=== PATIENT | male | born 1950 | race Caucasian/White ===

== ENCOUNTER 2019-11-20 19:31 | Inpatient (IN) | payer MEDICARE, OTHER ==
[~2019-11-20] VITALS: Ht 177.8 cm; Wt 68.5 kg
[2019-11-20] MEDS ORDERED: SODIUM CHLORIDE 0.9% 1000ML 1,000 ML IV STA (20:38)
--- NOTE | 2019-11-20 20:38 | Emergency Department Note ---
History of Present Illnes History of Present Illness Chief Complaint: General Medicine Complaints History of Present Illness This is a 69 year old male abd pain x 2 weeks duration. Decreased BM per brother. Patient with developmental delay and unable to provide meaningful history. . History limited by: developmental delay Onset (how long ago): week(s) Radiation: Reports abdomen Severity: moderate Onset quality: gradual Duration (how long): week(s) Timing of current episode: constant Context: Denies recent illness, Denies recent surgery, Denies recent immobilization, Denies recent travel, Denies trauma/injury, Denies new medications, Denies hx of DVT/PE, Denies non-compliance w/ medications, Denies other Associated symptoms: Reports loss of appetite, Reports weakness Treatments prior to arrival: none Past Medical/Family History Physician Review I have reviewed the patient's past medical and family history. Any updates have been documented here. Past Medical History Recent Fever: No Clinical Suspicion of Infectio: No New/Unexplained Change in Ment: No Past Medical History: Hypertension, Other Mental Illness Past Surgical History: None Social History Smoking Cessation: Never Smoker Alcohol Use: None Any Illegal Drug Use: No Review of Systems Review of Systems Constitutional: Reports no symptoms EENTM: Reports no symptoms Cardiovascular: Reports no symptoms Respiratory: Reports no symptoms Gastrointestinal: Reports abdominal pain Genitourinary: Reports no symptoms Musculoskeletal: Reports no symptoms Integumentary: Reports no symptoms Neurological: Reports no symptoms Psychological: Reports no symptoms Endocrine: Reports no symptoms Hematological/Lymphatic: Reports no symptoms Physical Exam Related Data Allergies: Coded Allergies: No Known Allergies (Unverified , 11/21/19) Triage Vital Signs Vital Signs Date Time Temp Pulse Resp B/P (MAP) Pulse Ox O2 Delivery O2 Flow Rate FiO2 11/20/19 20:38 99.7 91 20 144/85 96 Room Air Vital signs reviewed: Yes Physical Exam CONSTITUTIONAL Constitutional: Present well-developed, Present well-nourished HENT HENT: Present normocephalic, Present atraumatic, Present oropharynx clear/moist, Present nose normal HENT L/R: Present left ext ear normal, Present right ext ear normal EYES Eyes: Reports PERRL, Reports conjunctivae normal NECK Neck: Present ROM normal PULMONARY Pulmonary: Present effort normal, Present breath sounds normal CARDIOVASCULAR Cardiovascular: Present heart sounds normal, Present tachycardia GASTROINTESTINAL Abdominal: Present soft, Present nontender, Present bowel sounds normal, Present distension GENITOURINARY Genitourinary: Present exam deferred SKIN Skin: Present warm, Present dry MUSCULOSKELETAL Musculoskeletal: Present ROM normal NEUROLOGICAL Neurological: Present alert, Present oriented x 3, Present no gross motor or sensory deficits PSYCHOLOGICAL Psychological: Present mood/affect normal, Present judgement normal Results Laboratory Lab results reviewed: Yes Laboratory comments wbc 21k, hgb 12, cr elevated, bili elevated Imaging Imaging results reviewed: Yes Impressions [facility] [address] [place] [address] Patient Name: GRAYSON WILLIAMSON MR #: [id number] : 1950 Age/Sex: 69/M Req #: [id number] Adm Physician: Ordered by: ALEK MEHTA DO Report #: [id number] Location: ER Room/Bed: Procedure: CT/CT ABDOMEN/PELVIS WO Exam Date: 11/21/19 Exam Time: 0130 REPORT STATUS: Signed EXAM: CT Abdomen and Pelvis WITHOUT contrast INDICATION: ^abd pain ^[id number] ^0130 COMPARISON: None. TECHNIQUE: Abdomen and pelvis were scanned utilizing a multidetector helical scanner from the lung base to the pubic symphysis without administration of IV contrast. Absence of intravenous contrast decreases sensitivity for detection of focal lesions and vascular pathology. Coronal and sagittal reformations were obtained. Routine protocol was performed. IV CONTRAST: None ORAL CONTRAST: None COMPLICATIONS: None RADIATION DOSE: Total DLP: 642 mGy*cm Estimated effective dose: (DLP x 0.015 x size factor) mSv CTDIvol has been reviewed. It is below the limits set by the Radiation Protocol Committee (RPC). Dose modulation, iterative reconstruction, and/or weight based adjustment of the mA/kV was utilized to reduce the radiation dose to as low as reasonably achievable. FINDINGS: LINES and TUBES: None. LOWER THORAX: Unremarkable HEPATOBILIARY: No focal hepatic lesions. No biliary ductal dilation. GALLBLADDER: No radio-opaque stones or sludge. No wall thickening. SPLEEN: No splenomegaly. PANCREAS: No focal masses or ductal dilatation. ADRENALS: No adrenal nodules. KIDNEYS/URETERS: No hydronephrosis. No cystic or solid mass lesions. Multiple renal calcifications likely represent vascular calcifications as opposed to renal calculi. GI TRACT: The colon is distended with gas and stool. Large volume of formed stool throughout the colon, notably in the rectum. Mild wall thickening of rectum and distal sigmoid colon with mild surrounding mesenteric inflammatory change. No bowel obstruction. No significant colonic diverticuli. PELVIC ORGANS/BLADDER: Mild nonspecific bladder wall thickening. Mild prostatomegaly. LYMPH NODES: No lymphadenopathy. VESSELS: Advanced arterial atherosclerotic disease. Ectatic abdominal aorta. PERITONEUM / RETROPERITONEUM: Pelvic mesenteric inflammation. No free air or fluid. BONES: No acute osseous abnormality. SOFT TISSUES: Unremarkable. IMPRESSION: Large volume of formed stool throughout the colon consistent with constipation. Mild wall thickening of the rectum and distal sigmoid colon with surrounding mesenteric inflammation is suggestive of stercoral proctitis/colitis. No bowel obstruction. Signed by: Alberto Maddox MD on 11/21/2019 1:59 AM Dictated By: ALBERTO MADDOX MD 8 Transcribed By: KIRSTEN on 11/21/19158 COPY TO: ALEK [place]A DO[place] [address] Patient Name: GRAYSON WILLIAMSON MR #: [id number] : 1950 Age/Sex: 69/M Req #: [id number] Adm Physician: SAMUEL MEHTA MD Ordered by: SAMUEL MEHTA MD Report #: [id number] Location: MED/SURG2 Room/Bed: [facility] Procedure: [id number] CT/CT CHEST WO Exam Date: 11/21/19 Exam Time: 1305 REPORT STATUS: Signed EXAM: CT Chest WITHOUT contrast 11/21/2019 1:05 PM INDICATION: ^SOB/SMOKER/HIGH WBC ^[id number] ^1305 COMPARISON: CT abdomen and pelvis 11/21/2019 TECHNIQUE: Chest was scanned utilizing a multidetector helical scanner from the lung apex through the level of the adrenal glands without administration of IV contrast. Absence of intravenous contrast decreases sensitivity for detection of lymphadenopathy and vascular pathology. Coronal and sagittal reformations were obtained. Routine protocol was performed. IV CONTRAST: None COMPLICATIONS: None RADIATION DOSE: Total DLP: 548.9 mGy*cm Estimated effective dose: (DLP x 0.015 x size factor) mSv CTDIvol has been reviewed. It is below the limits set by the Radiation Protocol Committee (RPC). FINDINGS: LINES/ TUBES: None. LUNGS AND AIRWAYS: Mild to moderate bilateral upper lobe predominant centrilobular emphysema. Mild subpleural mild atelectasis in both posterior lobes, not seen on earlier CT abdomen and pelvis, likely due to poor inspiration. 2.1 cm x 1.8 dystrophic calcification with surrounding soft tissue density in the anterior left upper lobe in continuation with the left anterior 4 rib fracture deformity, likely related to prior trauma. The soft tissue component measures 6 mm in thickness. Otherwise, no consolidation, tree-in-bud pulmonary nodule, or suspicious pulmonary nodules/masses. Airways are normal. PLEURA: The pleural spaces are clear. HEART AND MEDIASTINUM: The thyroid gland is normal. Few nonspecific subcentimeter mediastinal lymph nodes. The heart is normal in size. Trace pericardial effusion. Extensive coronary artery calcifications with extensive place. Ectasia of the aortic root at the sinus of Valsalva (3.9 cm) and mid ascending thoracic aorta (3.9 cm). Moderate calcification throughout the thoracic aorta. The thoracic aorta and pulmonary arteries are unremarkable. UPPER ABDOMEN: Unremarkable. BONES: Multilevel degenerative changes of the thoracic spine. Mild posttraumatic deformity of the left anterior fourth rib. SOFT TISSUES: Gynecomastia. IMPRESSION: Bilateral emphysema with dependent atelectasis in the lung bases. No CT findings to suggest active infection. Left upper lobe dystrophic calcification with a surrounding soft tissue component likely related to prior trauma. Given the 6 mm thickness of the soft tissue component, recommend CT chest without contrast in 3 months to demonstrate stability. Signed by: Dr. Ofelia Blount M.D. on 11/21/2019 2:10 PM Dictated By: OFELIA BLOUNT MD 141 Transcribed By: KIRSTEN on 11/21/19 1410 COPY TO: SAMUEL MEHTA MD~ Procedures 12 Lead ECG Interpretation ECG Interpretation : ECG: ECG 1 Commercial Collector: Interpreted by ED physician Date: Nov 20, 2019 Prior ECG tracings: reviewed Rate: normal BPM: 93 QRS axis: normal ST segments normal: Yes T waves normal: Yes Other findings: LVH Clinical Impression: normal ECG Assessment & Plan Medical Decision Making MDM 69 yom with abdominal pain. CBC, CMP, UA and CTS ordered to r/o appendicitis, diverticulitis, UTI, kidney stone, perforated viscus, obstruction, ischemia, COVID-19 infection and biliary pathology Assessment & Plan Final Impression: (1) UTI (urinary tract infection) (2) Weakness (3) Renal insufficiency Depart Disposition: ADMITTED Home Meds Reported Medications Aspirin (ASPIRIN CHEW) 81 Mg Chew, 81 MG PO DAILY, #30 TAB 11/21/19 Atorvastatin Calcium (ATORVASTATIN CALCIUM) 80 Mg Tablet, 40 MG PO HS 11/21/19 Lisinopril (LISINOPRIL) 40 Mg Tablet, 40 MG PO DAILY 11/21/19 Clopidogrel Bisulfate (CLOPIDOGREL) 75 Mg Tablet, 75 MG PO DAILY 11/21/19 Amlodipine Besylate (AMLODIPINE BESYLATE) 5 Mg Tablet, 5 MG PO DAILY 11/21/19 ALEK MEHTA DO Nov 20, 2019 20:38
[2019-11-20 21:21] LABS: BASOPHILS # (AUTO) 0.1 (0.0-0.1); BASOPHILS % 0.3 % (0.0-1.0); HEMATOCRIT 39.9 % (38.2-49.6); HEMOGLOBIN 12.5 g/dL (14.0-18.0); LYMPHOCYTES # (AUTO) 1.6 (1.0-3.2); LYMPHOCYTES % 7.2 % (18.0-39.1); MEAN CORPUSCULAR HEMOGLOBIN 28.9 pg (28-32); MEAN CORPUSCULAR HGB CONC 31.3 g/dL (31-35); MEAN CORPUSCULAR VOLUME 92.1 fL (81-99); MONOCYTES # (AUTO) 1.1 (0.2-0.8); MONOCYTES % 5.1 % (4.4-11.3); NEUTROPHILS # (AUTO) 18.6 (2.1-6.9); NEUTROPHILS % 85.4 % (38.7-80.0); PLATELET COUNT 239 x10e3/uL (140-360); RED BLOOD COUNT 4.33 x10e6/uL (4.3-5.7); RED CELL DISTRIBUTION WIDTH 16.9 % (11.7-14.4)
[2019-11-21 00:57] LABS: ALBUMIN 3.6 g/dL (3.5-5.0); ALBUMIN/GLOBULIN RATIO 1.1 (0.8-2.0); ANION GAP 15.5 mmol/L (8-16); CALCIUM 9.2 mg/dL (8.4-10.2); CREATININE, SERUM 2.92 mg/dL (0.72-1.25); POTASSIUM 4.5 mmol/L (3.5-5.1)
[2019-11-21] MEDS ORDERED: SODIUM CHLORIDE 0.9% 1000ML 1,000 ML ONE (01:40)
--- NOTE | 2019-11-21 02:03 | Diagnostic Imaging Report ---
EXAM: CT Abdomen and Pelvis WITHOUT contrast INDICATION: ^abd pain ^[id number] ^0130 COMPARISON: None. TECHNIQUE: Abdomen and pelvis were scanned utilizing a multidetector helical scanner from the lung base to the pubic symphysis without administration of IV contrast. Absence of intravenous contrast decreases sensitivity for detection of focal lesions and vascular pathology. Coronal and sagittal reformations were obtained. Routine protocol was performed. IV CONTRAST: None ORAL CONTRAST: None COMPLICATIONS: None RADIATION DOSE: Total DLP: 642 mGy*cm Estimated effective dose: (DLP x 0.015 x size factor) mSv CTDIvol has been reviewed. It is below the limits set by the Radiation Protocol Committee (RPC). Dose modulation, iterative reconstruction, and/or weight based adjustment of the mA/kV was utilized to reduce the radiation dose to as low as reasonably achievable. FINDINGS: LINES and TUBES: None. LOWER THORAX: Unremarkable HEPATOBILIARY: No focal hepatic lesions. No biliary ductal dilation. GALLBLADDER: No radio-opaque stones or sludge. No wall thickening. SPLEEN: No splenomegaly. PANCREAS: No focal masses or ductal dilatation. ADRENALS: No adrenal nodules. KIDNEYS/URETERS: No hydronephrosis. No cystic or solid mass lesions. Multiple renal calcifications likely represent vascular calcifications as opposed to renal calculi. GI TRACT: The colon is distended with gas and stool. Large volume of formed stool throughout the colon, notably in the rectum. Mild wall thickening of rectum and distal sigmoid colon with mild surrounding mesenteric inflammatory change. No bowel obstruction. No significant colonic diverticuli. PELVIC ORGANS/BLADDER: Mild nonspecific bladder wall thickening. Mild prostatomegaly. LYMPH NODES: No lymphadenopathy. VESSELS: Advanced arterial atherosclerotic disease. Ectatic abdominal aorta. PERITONEUM / RETROPERITONEUM: Pelvic mesenteric inflammation. No free air or fluid. BONES: No acute osseous abnormality. SOFT TISSUES: Unremarkable. IMPRESSION: Large volume of formed stool throughout the colon consistent with constipation. Mild wall thickening of the rectum and distal sigmoid colon with surrounding mesenteric inflammation is suggestive of stercoral proctitis/colitis. No bowel obstruction. Signed by: Britton Oconnell MD on 11/21/2019 1:59 AM
[2019-11-21] MEDS ORDERED: ONDANSETRON HCL INJ 2MG/ML 2ML 2 MG/ML VIAL IV PRN (03:15)
[2019-11-21] MEDS ORDERED: CEFTRIAXONE SOD 1 GM/NS 50 ML 50 ML IV SCH (03:15)
[2019-11-21] MEDS ORDERED: MORPHINE SULFATE INJ 4 MG/ML INJ 1ML IV PRN (04:45)
[2019-11-21 04:56] LABS: BILIRUBIN,URINE NEGATIVE (NEGATIVE); CLARITY,URINE CLOUDY (CLEAR); COLOR,URINE YELLOW (YELLOW); KETONES,URINE NEGATIVE (NEGATIVE); LEUKOCYTE ESTERASE ,URINE NEGATIVE (NEGATIVE); NITRITE,URINE NEGATIVE (NEGATIVE); PROTEIN,URINE DIPSTICK 2+ (NEGATIVE); URINE UROBILINOGEN 0.2 mg/dL (0.2 - 1)
[2019-11-21 05:12] LABS: RBC,URINE 21-50 /HPF (0-5); WBC,URINE (MAN) >50 /HPF (0-5)
[2019-11-21 05:13] LABS: BACTERIA,URINE MANY /HPF; EPITHELIAL CELLS,URINE FEW /LPF; RENAL EPITHELIAL CELLS,URINE FEW; TRANSITIONAL EPI CELLS,URINE FEW
[2019-11-21] MEDS: SODIUM CHLORIDE 0.9% 1000ML 1,000 ML IV SCH ×3 (06:30→20:17)
--- NOTE | 2019-11-21 06:30 | NUR ---
patient received to room 209 via stretcher from the emergency room. ivf initiated per orders. report to be passed on to day shift nurse this am.
[2019-11-21 06:53] LABS: CREATINE KINASE MB 0.9 ng/mL (0-5.0)
--- NOTE | 2019-11-21 07:00 | NUR ---
BEDSIDE SHIFT REPORT RECEIVED FROM THE PURCHASING ENGINEER RN. EDUCATED PT ABOUT FALL PRECAUTIONS. PT VERBALIZED UNDERSTANDING. CALL LIGHT WITH IN EASY REACH. INSTRUCTED PT TO USE CALL LIGHT FOR ALL THE NEEDS. BED IS LOW AND LOCKED. SIDE RAILS X2. BED ALARM IS ON. PT DENIES NEEDS AT THIS TIME.
[2019-11-21 07:10] LABS: CREATINE KINASE MB 1.4 ng/mL (0-5.0)
--- NOTE | 2019-11-21 07:30 | NUR ---
PAGED DR. Gay MARSHALL REGARDING NEW CONSULT.
--- NOTE | 2019-11-21 08:15 | NUR ---
HOME MEDS RECONFIRMED WITH PT AND BROTHER FOZIA OVER THE PHONE.
[2019-11-21] MEDS ORDERED: AMLODIPINE BESYL5 MG PO (08:17)
[2019-11-21] MEDS ORDERED: LISINOPRIL40 MG PO (08:17)
[2019-11-21] MEDS ORDERED: CLOPIDOGREL75 MG PO (08:17)
[2019-11-21] MEDS ORDERED: ATORVASTATIN CA80 MG PO (08:17)
[2019-11-21] MEDS ORDERED: ASPIRIN CHEW81 MG PO (08:17)
[2019-11-21 08:46] VITALS: BP 128/59
[2019-11-21 09:14] VITALS: BP 128/59
[2019-11-21 11:14] VITALS: BP 128/59
[2019-11-21] MEDS ORDERED: ACETAMINOPHEN 325 MG TAB PO PRN (11:15)
[2019-11-21] MEDS ORDERED: ALBUTEROL/IPRATROPIUM 3 ML NEB NEB PRN (11:15)
[2019-11-21] MEDS ORDERED: MAGNESIUM HYDROXIDE 30 ML UDC PO SCH (11:30)
[2019-11-21] MEDS ORDERED: PEG (High)/E-LYTE SOLN 4,000 ML BTL PO SCH (11:30)
[2019-11-21] MEDS: SENNA-S TABLET PO SCH ×2 (11:40→17:00)
[2019-11-21] MEDS: PIPERACILLIN/TAZO 2.25 GM 50 ML IV SCH ×2 (11:41→18:08)
--- NOTE | 2019-11-21 11:54 | History and Physical ---
CHIEF COMPLAINT: Abdominal pain, increasing shortness of breath, weakness. HISTORY OF PRESENT ILLNESS: This is a 69-year-old male smoker, visiting from out of town visiting his brother been here for 3 weeks or so now. The patient came in because he was having severe constipation, has not had any bowel movement, but also complained of increasing shortness of breath and his white cell count is greater than 21,000. The patient placed on antibiotics. According to the patient, he has been going on for past 2 to 3 weeks since he has been here. He is a smoker. No previous history of abdominal surgery. The patient stating that he had both hip surgery and he is unable to walk because of the hip, but he is able to move his extremity. He is basically wheelchair and bed-bound, able to transfer. 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 Possible COPD. Dyslipidemia, coronary artery disease, peripheral vascular disease. Hypertension. PAST SURGICAL HISTORY: Bilateral hip surgery. SOCIAL HISTORY: The patient is a smoker, half to one pack per day for many years. ALLERGIES: NO KNOWN ALLERGIES. HOME MEDICATIONS: Norvasc, aspirin, Lipitor, Plavix, and lisinopril. PHYSICAL EXAMINATION: VITAL SIGNS: Temperature is 99.7, blood pressure 128/59, pulse rate 91, respirations 20. GENERAL: The patient is awake, alert, not in distress. HEENT: Normocephalic and atraumatic. Anicteric. NECK: Supple grossly. PULMONARY: Diminished breath sounds bilaterally with some coarse. CARDIOVASCULAR: S1, S2. Regular rate and rhythm. ABDOMEN: Soft, non-distention. Generalized discomfort. EXTREMITIES: No cyanosis or edema. NEUROLOGIC: No focal deficit. LABORATORY: Urinalysis, cloudy urine, 2+ blood, wbc's greater than 50, many bacteria. COVID-9 PCR pending. Sodium is 132, potassium 4.5, chloride 100, bicarb 21, BUN 29, creatinine 2.9, glucose is 206. Lactic acid level is 1.1. WBC 21.8, hemoglobin 12.5, hematocrit 39.9, platelets 239. IMAGING DATA: CT abdomen and pelvis without contrast showed that the patient had large volume of formed stool throughout the colon consistent with constipation. There is mild wall thickening of the rectum in the distal sigmoid colon with surrounding mesenteric inflammation suggestive of proctitis, colitis. No bowel obstruction. IMPRESSION: 1. Systemic inflammatory response syndrome. 2. Leukocytosis 21.8 thousand associated with low-grade fever. 3. Obstipation, possible colitis, proctitis. 4. Baseline bed-bound, wheelchair-bound and generalized weakness. PLAN: 1. Antibiotic, Zosyn. A CT of the chest. Since the patient is a smoker, he has progressive weight loss with increasing shortness of breath and also low-grade fever. 2. Continue with home medication, blood pressure control. 3. IV fluid. 4. Stool management. 5. GI consultation. Pending on CT chest. The patient may need pulmonology consultation. In the meantime, I will go ahead and admit the patient inpatient. Started treatment. Monitor the WBC infection echols. Check blood culture and urine culture and also hold off on the Plavix and aspirin in case that the patient will need any further evaluation or procedures. In the meantime to prevent DVT, we will give the patient Lovenox because of renal insufficiency 30 mg daily. The patient is otherwise stable at this time. MD BIJU Barnes/REMYL /[id number]
[2019-11-21 12:23] VITALS: BP 141/62
[2019-11-21] MEDS: ALBUTEROL/IPRATROPIUM 3 ML NEB NEB SCH ×2 (12:35→19:25)
--- NOTE | 2019-11-21 13:05 | NUR ---
PT OFF UNIT TO RADIOLOGY IN SAFE CONDITION
--- NOTE | 2019-11-21 13:30 | NUR ---
PT IS BACK TO THE UNIT FROM RADIOLOGY. PT DENIES NEEDS AT THIS TIME.
--- NOTE | 2019-11-21 14:13 | Diagnostic Imaging Report ---
EXAM: CT Chest WITHOUT contrast 11/21/2019 1:05 PM INDICATION: ^SOB/SMOKER/HIGH WBC ^[id number] ^1305 COMPARISON: CT abdomen and pelvis 11/21/2019 TECHNIQUE: Chest was scanned utilizing a multidetector helical scanner from the lung apex through the level of the adrenal glands without administration of IV contrast. Absence of intravenous contrast decreases sensitivity for detection of lymphadenopathy and vascular pathology. Coronal and sagittal reformations were obtained. Routine protocol was performed. IV CONTRAST: None COMPLICATIONS: None RADIATION DOSE: Total DLP: 548.9 mGy*cm Estimated effective dose: (DLP x 0.015 x size factor) mSv CTDIvol has been reviewed. It is below the limits set by the Radiation Protocol Committee (RPC). FINDINGS: LINES/ TUBES: None. LUNGS AND AIRWAYS: Mild to moderate bilateral upper lobe predominant centrilobular emphysema. Mild subpleural mild atelectasis in both posterior lobes, not seen on earlier CT abdomen and pelvis, likely due to poor inspiration. 2.1 cm x 1.8 dystrophic calcification with surrounding soft tissue density in the anterior left upper lobe in continuation with the left anterior 4 rib fracture deformity, likely related to prior trauma. The soft tissue component measures 6 mm in thickness. Otherwise, no consolidation, tree-in-bud pulmonary nodule, or suspicious pulmonary nodules/masses. Airways are normal. PLEURA: The pleural spaces are clear. HEART AND MEDIASTINUM: The thyroid gland is normal. Few nonspecific subcentimeter mediastinal lymph nodes. The heart is normal in size. Trace pericardial effusion. Extensive coronary artery calcifications with extensive place. Ectasia of the aortic root at the sinus of Valsalva (3.9 cm) and mid ascending thoracic aorta (3.9 cm). Moderate calcification throughout the thoracic aorta. The thoracic aorta and pulmonary arteries are unremarkable. UPPER ABDOMEN: Unremarkable. BONES: Multilevel degenerative changes of the thoracic spine. Mild posttraumatic deformity of the left anterior fourth rib. SOFT TISSUES: Gynecomastia. IMPRESSION: Bilateral emphysema with dependent atelectasis in the lung bases. No CT findings to suggest active infection. Left upper lobe dystrophic calcification with a surrounding soft tissue component likely related to prior trauma. Given the 6 mm thickness of the soft tissue component, recommend CT chest without contrast in 3 months to demonstrate stability. Signed by: Dr. Harriet Keating M.D. on 11/21/2019 2:10 PM
[2019-11-21 16:55] VITALS: BP 144/68
[2019-11-21] MEDS: ENOXAPARIN 30 MG/0.3 ML SYR SC SCH (17:00)
[2019-11-21] MEDS ORDERED: PEG (High)/E-LYTE SOLN 4,000 ML BTL PO ONE (18:25)
--- NOTE | 2019-11-21 19:20 | NUR ---
BEDSIDE SHIFT REPORT GIVEN TO THE QUARTER BACKER RN. PT DENIED FURTHER NEEDS.
--- NOTE | 2019-11-21 19:28 | NUR ---
Patient received sitting up in bed. AAO x 3. Patient had no complaints of pain. Respirations even and non-labored. Safety measures in place. Patient instructed to call for assistance when needed. Call light within reach.
[2019-11-21 20:00] VITALS: BP 127/86
[2019-11-21] MEDS: ATORVASTATIN 40 MG TAB PO SCH (20:17)
[2019-11-21 21:09] LABS: CREATINE KINASE MB 1.9 ng/mL (0-5.0)
[2019-11-21] MEDS ORDERED: BISACODYL 10 MG SUPP PR ONE (22:15)
[2019-11-21] MEDS ORDERED: BISACODYL 5 MG TAB EC PO ONE ×2 (22:15→23:15)
[2019-11-21] MEDS ORDERED: CITRATE OF MAGNESIA 300ML BOTTLE PO ONE (22:15)
--- NOTE | 2019-11-21 22:15 | NUR ---
Dr. Fran Andino here to see patient. New orders received.
--- NOTE | 2019-11-21 23:15 | NUR ---
Urine specimen sent to lab for Gram stain.
[2019-11-22] VITALS (10 sets, daily range): BP systolic 120–145; BP diastolic 57–91
[2019-11-22] MEDS ORDERED: BISACODYL 5 MG TAB EC PO ONE ×4 (00:15→22:00)
[2019-11-22] MEDS: PIPERACILLIN/TAZO 2.25 GM 50 ML IV SCH ×4 (01:27→17:02)
[2019-11-22] MEDS: ALBUTEROL/IPRATROPIUM 3 ML NEB NEB SCH ×4 (01:55→20:20)
[2019-11-22] MEDS: SODIUM CHLORIDE 0.9% 1000ML 1,000 ML IV SCH ×3 (03:15→23:15)
[2019-11-22 06:16] LABS: BASOPHILS % 0.3 % (0.0-1.0); EOSINOPHILS % 0.1 % (0.0-6.0); HEMATOCRIT 31.6 % (38.2-49.6); HEMOGLOBIN 10.1 g/dL (14.0-18.0); LYMPHOCYTES # (AUTO) 0.4 (1.0-3.2); LYMPHOCYTES % 3.5 % (18.0-39.1); MEAN CORPUSCULAR HEMOGLOBIN 29.4 pg (28-32); MEAN CORPUSCULAR VOLUME 92.1 fL (81-99); MONOCYTES # (AUTO) 0.5 (0.2-0.8); MONOCYTES % 4.4 % (4.4-11.3); NEUTROPHILS # (AUTO) 10.8 (2.1-6.9); NEUTROPHILS % 90.6 % (38.7-80.0); PLATELET COUNT 170 x10e3/uL (140-360); RED BLOOD COUNT 3.43 x10e6/uL (4.3-5.7); RED CELL DISTRIBUTION WIDTH 17.2 % (11.7-14.4)
[2019-11-22 06:39] LABS: ALBUMIN 3.1 g/dL (3.5-5.0); ALBUMIN/GLOBULIN RATIO 0.9 (0.8-2.0); ANION GAP 15.2 mmol/L (8-16); CALCIUM 8.8 mg/dL (8.4-10.2); CREATININE, SERUM 2.79 mg/dL (0.72-1.25); POTASSIUM 4.2 mmol/L (3.5-5.1)
--- NOTE | 2019-11-22 07:00 | NUR ---
BEDSIDE SHIFT REPORT RECEIVED FROM THE SATURATION EQUIPMENT OPERATOR RN. EDUCATED PT ABOUT FALL PRECAUTIONS. PT VERBALIZED UNDERSTANDING. CALL LIGHT WITH IN EASY REACH. INSTRUCTED PT TO USE CALL LIGHT FOR ALL THE NEEDS. BED IS LOW AND LOCKED. SIDE RAILS X2. BED ALARM IS ON. PT DENIES NEEDS AT THIS TIME.
[2019-11-22] MEDS: SENNA-S TABLET PO SCH ×2 (08:57→17:02)
[2019-11-22] MEDS: AMLODIPINE BESYLATE 5 MG TAB PO SCH (08:57)
[2019-11-22 09:42] LABS: LYMPHOCYTES % (MANUAL) 7 % (19-48); MONOCYTES % (MANUAL) 4 % (3.4-9.0); NEUTROPHILS % (MANUAL) 89 % (40-74); PLATELET ESTIMATE ADEQUATE; PLATELET MORPHOLOGY COMMENT NORMAL; RBC MORPHOLOGY COMMENT NORMAL
[2019-11-22] MEDS: ENOXAPARIN 30 MG/0.3 ML SYR SC SCH (17:02)
--- NOTE | 2019-11-22 19:00 | NUR ---
BEDSIDE SHIFT REPORT GIVEN TO THE STARCH COOKER RN. PT DENIED FURTHER NEEDS.
[2019-11-22] MEDS: ATORVASTATIN 40 MG TAB PO SCH (20:37)
[2019-11-22] MEDS ORDERED: CITRATE OF MAGNESIA 300ML BOTTLE PO ONE (22:00)
[2019-11-23] VITALS (8 sets, daily range): BP systolic 109–145; BP diastolic 45–96
[2019-11-23] MEDS: PIPERACILLIN/TAZO 2.25 GM 50 ML IV SCH ×4 (00:20→17:00)
[2019-11-23 00:28] LABS: FERRITIN 619.67 ng/mL (21.81-274.66)
[2019-11-23] MEDS: ALBUTEROL/IPRATROPIUM 3 ML NEB NEB SCH ×4 (00:30→20:35)
[2019-11-23] MEDS: SODIUM CHLORIDE 0.9% 1000ML 1,000 ML IV SCH (04:51)
--- NOTE | 2019-11-23 06:13 | NUR ---
IV on Rt AC infiltrated. Old IV removed with tip intact. New IV inserted in right hand 22G. Patient tolerated well.
[2019-11-23 06:23] LABS: ANION GAP 12.5 mmol/L (8-16); CALCIUM 8.6 mg/dL (8.4-10.2); CREATININE, SERUM 2.8 mg/dL (0.72-1.25); POTASSIUM 3.5 mmol/L (3.5-5.1)
[2019-11-23] MEDS: AMLODIPINE BESYLATE 5 MG TAB PO SCH (09:10)
[2019-11-23] MEDS: SENNA-S TABLET PO SCH ×2 (09:10→17:00)
[2019-11-23] MEDS ORDERED: ONDANSETRON HCL 4 MG ORAL DISINTEGRATING TAB PO PRN (11:15)
[2019-11-23] MEDS: ENOXAPARIN 30 MG/0.3 ML SYR SC SCH (17:00)
--- NOTE | 2019-11-23 18:59 | NUR ---
Report given to oncoming nurse of patient's status. Resting in bed. No s/s of acute distress noted. Side rails upx2, bed alarm on, call light within reach.
--- NOTE | 2019-11-23 19:15 | NUR ---
Patient received lying in bed. AAO x 3. No acute distress noted. Safety measures in place. Call light within reach.
[2019-11-23] MEDS ORDERED: CITRATE OF MAGNESIA 300ML BOTTLE PO ONE ×2 (21:00→22:00)
[2019-11-23] MEDS: ATORVASTATIN 40 MG TAB PO SCH (21:34)
--- NOTE | 2019-11-23 23:03 | NUR ---
Dr. Fran bowers to see patient. New orders received.
[2019-11-23] MEDS ORDERED: BISACODYL 5 MG TAB EC PO ONE (23:15)
[2019-11-23] MEDS ORDERED: CYANOCOBALAMIN INJ 1,000 MCG/ML VIAL IM STA (23:21)
[2019-11-23] MEDS ORDERED: IRON SUCROSE 100 MG in SODIUM CHLORIDE 0.9% 100 ML 100 ML IV SCH (23:30)
[2019-11-24] VITALS (7 sets, daily range): BP systolic 125–160; BP diastolic 71–90
[2019-11-24] MEDS: PIPERACILLIN/TAZO 2.25 GM 50 ML IV SCH ×5 (00:07→23:45)
[2019-11-24] MEDS ORDERED: BISACODYL 5 MG TAB EC PO ONE (00:15)
--- NOTE | 2019-11-24 00:15 | NUR ---
IV on left arm infiltrated. Old IV removed with tip intact. New IV inserted in Right hand 20G. Patient tolerated well.
[2019-11-24] MEDS ORDERED: BISACODYL 5 MG TAB EC PO NR (02:10)
[2019-11-24] MEDS: SODIUM CHLORIDE 0.9% 1000ML 1,000 ML IV SCH ×3 (02:20→16:05)
[2019-11-24] MEDS: ALBUTEROL/IPRATROPIUM 3 ML NEB NEB SCH ×4 (02:20→20:05)
[2019-11-24 06:15] LABS: BASOPHILS % 0.5 % (0.0-1.0); EOSINOPHILS # (AUTO) 0.4 (0.0-0.4); EOSINOPHILS % 6.4 % (0.0-6.0); HEMATOCRIT 33.2 % (38.2-49.6); HEMOGLOBIN 10.3 g/dL (14.0-18.0); LYMPHOCYTES % 17.3 % (18.0-39.1); MEAN CORPUSCULAR VOLUME 93.5 fL (81-99); MONOCYTES # (AUTO) 0.5 (0.2-0.8); MONOCYTES % 8.7 % (4.4-11.3); NEUTROPHILS % 66.8 % (38.7-80.0); PLATELET COUNT 203 x10e3/uL (140-360); RED BLOOD COUNT 3.55 x10e6/uL (4.3-5.7); RED CELL DISTRIBUTION WIDTH 17.1 % (11.7-14.4)
[2019-11-24 06:47] LABS: ANION GAP 11.6 mmol/L (8-16); CREATININE, SERUM 2.47 mg/dL (0.72-1.25); POTASSIUM 3.6 mmol/L (3.5-5.1)
--- NOTE | 2019-11-24 07:20 | NUR ---
PATIENT IS ALERT AND IN STABLE CONDITION WITH NO S/S OF RESPIRATORY DISTRESS. NO C/O PAIN AT THIS TIME. DBED ALARM APPLIED. CALL LIGHT IS WITHIN REACH, PATIENT INSTRUCTED TO CALL FOR ASSISTANCE NEEDED.
[2019-11-24] MEDS ORDERED: IRON SUCROSE 100 MG in SODIUM CHLORIDE 0.9% 100 ML 100 ML IV SCH (08:00)
[2019-11-24] MEDS: AMLODIPINE BESYLATE 5 MG TAB PO SCH (08:33)
[2019-11-24] MEDS: SENNA-S TABLET PO SCH ×2 (08:33→16:01)
[2019-11-24] MEDS: CYANOCOBALAMIN INJ 1,000 MCG/ML VIAL IM SCH (08:35)
[2019-11-24] MEDS: IRON SUCROSE 100 MG in SODIUM CHLORIDE 0.9% 100 ML 100 ML IV SCH (12:39)
[2019-11-24] MEDS: ENOXAPARIN 30 MG/0.3 ML SYR SC SCH (16:05)
--- NOTE | 2019-11-24 17:32 | NUR ---
INFORMED DR. MEHTA OF PT'S RECOMMENDATION FOR HOME HEALTH- NO NEW ORDER RECEIVED. PATIENT REFUSED [facility] BUT AGREED FOR HOME HEALTH PT EVAL/TREAT.
--- NOTE | 2019-11-24 18:34 | NUR ---
SPOKE WITH DR. Fran MARSHALL REGARDING THE FAC INFORMATION ON THE PATIENT'S PREVIOUS COLONOSCOPY IN 2018. DR. MARSHALL AWARE THE FAX WILL BE LEFT FOR HIM ON THE TOP PART OF THE CHART.
--- NOTE | 2019-11-24 19:10 | NUR ---
PATIENT IS IN STABLE CONDITION WITH NO S/S OF RESPIRATORY DISTRESS. NO PAIN VOICED. IV FLUIDS INFUSING. TELEMETRY APPLIED. BED ALARM APPLIED. CALL LIGHT IS WITHIN REACH, PATIENT INSTRUCTED TO CALL FOR ASSISTANCE NEEDED. REPORT GIVEN TO ONCOMING NURSE.
--- NOTE | 2019-11-24 19:30 | NUR ---
patient received awake, alert, lying quietly in bed. no c/o pain noted. ivf continue to infuse without difficulty. pm assessment complete. call cadet placed within reach. patient instructed to call for assistance when needed.
[2019-11-24] MEDS: ATORVASTATIN 40 MG TAB PO SCH (21:00)
[2019-11-25] VITALS (8 sets, daily range): BP systolic 139–188; BP diastolic 70–89
--- NOTE | 2019-11-25 00:15 | NUR ---
Dr. Braxton here to see patient. diet advanced to gi soft diet.
[2019-11-25] MEDS: ALBUTEROL/IPRATROPIUM 3 ML NEB NEB SCH ×4 (01:25→19:45)
[2019-11-25] MEDS: SODIUM CHLORIDE 0.9% 1000ML 1,000 ML IV SCH ×2 (03:15→17:34)
[2019-11-25] MEDS: PIPERACILLIN/TAZO 2.25 GM 50 ML IV SCH ×3 (05:25→17:34)
--- NOTE | 2019-11-25 07:10 | NUR ---
PATIENT IS IN STABLE CONDITION WITH NO S/S OF RESPIRATORY DISTRESS- NO PAIN VOICED. DIAPER APPLIED. BED ALARM APPLIED. CALL LIGHT IS WITHIN REACH, PATIENT INSTRUCTED TO CALL FOR ASSISTANCE NEEDED.
[2019-11-25] MEDS: AMLODIPINE BESYLATE 5 MG TAB PO SCH (08:12)
[2019-11-25] MEDS: CYANOCOBALAMIN INJ 1,000 MCG/ML VIAL IM SCH (08:12)
[2019-11-25] MEDS: SENNA-S TABLET PO SCH ×2 (08:38→16:08)
--- NOTE | 2019-11-25 10:48 | NUR ---
Pt unavailable at this time. EVS cleaning room. I will follow up as able. BRADEN POOL Nuclear Unit Operator Spiritual Care Department O: [phone]
[2019-11-25] MEDS: IRON SUCROSE 100 MG in SODIUM CHLORIDE 0.9% 100 ML 100 ML IV SCH (12:05)
[2019-11-25] MEDS: ENOXAPARIN 30 MG/0.3 ML SYR SC SCH (17:34)
--- NOTE | 2019-11-25 19:00 | NUR ---
PATIENT FINISHED BATHING- PCT AVAILABLE FOR PATIENT IN ROOM. PATIENT IN STABLE CONDITION WITH NO S/S OF RESPIRATORY DISTRESS. NO PAIN VOICED. CALL LIGHT IS WITHIN REACH, PATIENT INSTRUCTED TO CALL FOR ASSISTANCE NEEDED. REPORT GIVEN TO ONCOMING NURSE.
[2019-11-25] MEDS: ATORVASTATIN 40 MG TAB PO SCH (20:40)
--- NOTE | 2019-11-25 20:40 | NUR ---
PATIENT RESTING IN BED IN STABLE CONDITION, NO SIGNS OF DISTRESS NOTED. IV FLUIDS ARE RUNNING AT ORDERED RATE AND PATIENT VOICES NO PAIN AT THIS TIME. LUNG SOUNDS ARE CLEAR AND IV REMOVED FROM LEFT WRIST DUE TO LEAKAGE. BED IN LOW POSITION, BOTH SIDE RAILS ARE UP, BED ALARM IS ON, CALL LIGHT IS WITHIN EASY REACH, WILL CONTINUE TO MONITOR.
[2019-11-26] VITALS: BP 124/76
[2019-11-26] MEDS: PIPERACILLIN/TAZO 2.25 GM 50 ML IV SCH ×3 (00:06→12:00)
[2019-11-26] MEDS: ALBUTEROL/IPRATROPIUM 3 ML NEB NEB SCH ×3 (01:00→12:50)
[2019-11-26] MEDS: SODIUM CHLORIDE 0.9% 1000ML 1,000 ML IV SCH (01:23)
[2019-11-26 04:00] VITALS: BP 118/49
[2019-11-26 06:08] LABS: BASOPHILS # (AUTO) 0.1 (0.0-0.1); BASOPHILS % 1.1 % (0.0-1.0); EOSINOPHILS # (AUTO) 0.4 (0.0-0.4); EOSINOPHILS % 7.9 % (0.0-6.0); HEMATOCRIT 32.4 % (38.2-49.6); HEMOGLOBIN 9.9 g/dL (14.0-18.0); LYMPHOCYTES # (AUTO) 1.3 (1.0-3.2); LYMPHOCYTES % 24.4 % (18.0-39.1); MEAN CORPUSCULAR HEMOGLOBIN 28.2 pg (28-32); MEAN CORPUSCULAR HGB CONC 30.6 g/dL (31-35); MEAN CORPUSCULAR VOLUME 92.3 fL (81-99); MONOCYTES # (AUTO) 0.4 (0.2-0.8); MONOCYTES % 8.3 % (4.4-11.3); NEUTROPHILS % 56.8 % (38.7-80.0); PLATELET COUNT 244 x10e3/uL (140-360); RED BLOOD COUNT 3.51 x10e6/uL (4.3-5.7); RED CELL DISTRIBUTION WIDTH 16.5 % (11.7-14.4)
[2019-11-26 06:25] LABS: ANION GAP 10.1 mmol/L (8-16); CALCIUM 8.5 mg/dL (8.4-10.2); CREATININE, SERUM 2.19 mg/dL (0.72-1.25); POTASSIUM 3.1 mmol/L (3.5-5.1)
--- NOTE | 2019-11-26 07:10 | NUR ---
RCD PT AT BED PT IS ALERT AND ORIENTED IV PATENT BY SALINE FLUSH BED LOW AND LOCKED CALL LIGHT IN REACH
[2019-11-26 08:35] VITALS: BP 168/75
[2019-11-26 09:00] VITALS: BP 168/75
[2019-11-26] MEDS: SENNA-S TABLET PO SCH (09:00)
[2019-11-26] MEDS: CYANOCOBALAMIN INJ 1,000 MCG/ML VIAL IM SCH (09:00)
[2019-11-26] MEDS: AMLODIPINE BESYLATE 5 MG TAB PO SCH (09:00)
[2019-11-26 09:29] LABS: EOSINOPHILS % (MANUAL) 5 % (0-7); LYMPHOCYTES % (MANUAL) 19 % (19-48); MONOCYTES % (MANUAL) 4 % (3.4-9.0); NEUTROPHILS % (MANUAL) 72 % (40-74); PLATELET ESTIMATE ADEQUATE; PLATELET MORPHOLOGY COMMENT RARE EDTA CLUMPING; RBC MORPHOLOGY COMMENT NORMAL
[2019-11-26] MEDS ORDERED: POTASSIUM CHLORIDE 10MEQ EA PO ONE (10:00)
[2019-11-26] MEDS ORDERED: SENOKOT-S TABL1 EACH PO (10:11)
[2019-11-26] MEDS ORDERED: CIPRO500 MG PO (10:12)
[2019-11-26] MEDS ORDERED: FLAGYL250 MG PO (10:12)
[2019-11-26] MEDS ORDERED: MIRALAX17 GM PO (10:13)
[2019-11-26] MEDS ORDERED: NORVASC5 MG PO (10:14)
[2019-11-26] MEDS ORDERED: VITAMIN B-121000 MCG PO (10:14)
[2019-11-26] MEDS: IRON SUCROSE 100 MG in SODIUM CHLORIDE 0.9% 100 ML 100 ML IV SCH (12:00)
[2019-11-26 12:31] VITALS: BP 177/84
--- NOTE | 2019-11-26 13:02 | NUR ---
PT WENT HOME IN SAFE CONDITION WITH HIS BROTHER
[2019-11-27 06:11] LABS: ENDOMYSIAL ANTIBODIES, IGA Negative (Negative)
--- OUTSIDE RECORDS SUMMARY | 2019-12-19 05:17 | XMS REPORT | Continuity of Care Document ---
Author Author [facility] t Organization [facility] Address [address] [place] [address] Phone Unavailable Care Team Providers Care Collision Estimator Name Role Phone NONSTAFF PCP Unavailable SAMUEL MEHTA Attphys Unavailable SAMUEL MEHTA Admphys Unavailable Problems Condition Name Condition Details Condition Category Status Onset Date Resolution Date Last Treatment Date Treating Clinician Comments Source Urinary tract infection Problem Active [facility] Renal insufficiency Problem [facility] Weakness Problem [facility] Allergies, Adverse Reactions, Alerts This patient has no known allergies or adverse reactions. Social History Social Habit Start Date Stop Date Quantity Comments Source Sex Assigned At 1950 00:00:00 1950 00:00:00 Male [facility] Medications Ordered Medication Name Filled Medication Name Start Date Stop Da te Current Medication? Ordering Clinician Indication Dosage Frequency Signature (SIG) Comments Components Source Amlodipine Besylate Amlodipine Besylate Yes 5 Daily [facility] Amlodipine Besylate (Norvasc) 5 Mg TAB Amlodipine Besylate (Norv asc) 5 Mg TAB Yes 5 Daily [facility] Aspirin (Aspirin Chew) 81 Mg CHEW Aspirin (Aspirin Chew) 81 Mg CHEW Yes 81 Daily [facility] Atorvastatin Calcium Atorvastatin Calcium Yes 40 Bedtime [facility] Ciprofloxacin Hcl (Cipro) 500 Mg TABLET Ciprofloxacin Hcl (C ipro) 500 Mg TABLET Yes 250 Every 12 Hours [facility] Clopidogrel Bisulfate (Clopidogrel) 75 Mg TABLET Clopi dogrel Bisulfate (Clopidogrel) 75 Mg TABLET Yes 75 Daily [facility] Cyanocobalamin (Vitamin B-12) 1,000 Mcg TAB Cyanocobal scales (Vitamin B-12) 1,000 Mcg TAB Yes 1000 Daily [facility] Metronidazole (Flagyl) 250 Mg TABLET Metronidazole (Flagyl) 250 Mg TABLET Yes 500 Twice A Day [facility] Polyethylene Glycol 3350 (Miralax) 17 Gm POWD.PACK Octaviano yethylene Glycol 3350 (Miralax) 17 Gm POWD.PACK Yes 17 Twice A Day [facility] Sennosides/Docusate Sodium (Senokot-S Tablet) 1 Each T ABLET Sennosides/Docusate Sodium (Senokot-S Tablet) 1 Each TABLET Yes 1 Twice A Day [facility] Lisinopril Lisinopril 2019-11-26 00:00:00 No 40 Marjorie ly [facility] Vital Signs Vital Name Observation Time Observation Value Comments Source Body Temperature 2019-11-26 12:31:00 98.5 [degF] [facility] BMI (Body Mass Index) 2019-11-22 00:27:00 21.7 kg/m2 [facility] Weight 2019-11-20 20:38:00 151 [lb_av] [facility] Procedures Procedure Date / Time Performed Performing Clinician Sergey tata CT of abdomen and pelvis without contrast 2019-11-21 00:00:00 [facility] Computed tomography of chest without contrast 2019-11-21 00:00:0 0 [facility] Plan of Care Planned Activity Planned Date Details Comments Source Instructions Abdominal Pain - Adult [facility] Encounters Start Date/Time End Date/Time Encounter Type Admission Type Attendi [facility] Care Department Encounter ID Source 2019-11-21 11:10:00 2019-11-26 13:20:00 Discharged Inpatient 1 TYSONSAMUEL [facility] [id number] [facility] Results Test Description Test Time Test Comments Results Result Comments Source Blood leukocytes automated count (number/volume) 2019-11-26 05:10:00 Test Item White Blood Count (test code = 6690-2) 5.29 4.8-10.8 [facility] erythrocytes automated count (number/volume)2019-11-26 05:10:00* Test Item Value Reference Range Interpretation Comments Red Blood Count (test code = 789-8) 3.51 4.3-5.7 [facility] hemoglobin measurement (moles/volume)2019-11-26 05:10:00* Test Item Value Reference Range Interpretation Comments Hemoglobin (test code = 56249-7) 9.9 14.0-18.0 [facility] CenterAutomated blood hematocrit (volume fraction)2019-11-26 05:10:00* Test Item Value Reference Range Interpretation Comments Hematocrit (test code = 4544-3) 32.4 38.2-49.6 [facility] CenterAutomated erythrocyte mean corpuscular kdekum2784-80-73 05:10:00* Test Item Value Reference Range Interpretation Comments Mean Corpuscular Volume (test code = 787-2) 92.3 81-99 [facility] CenterAutomated erythrocyte mean corpuscular hemoglobin (mass per erythrocyte)2019-11-26 05:10:00* Test Item Value Reference Range Interpretation Comments Mean Corpuscular Hemoglobin (test code = 785-6) 28.2 28-32 [facility] CenterAutomated erythrocyte mean corpuscular hemoglobin concentration measurement (mass/volume)2019-11-26 05:10:00* Test Item Value Reference Range Interpretation Comments Mean Corpuscular Hemoglobin Concent (test code = 786-4) 30.6 31-35 [facility] CenterRDW VojLg-Xnx4020-99-08 05:10:00* Test Item Value Reference Range Interpretation Comments Red Cell Distribution Width (test code = 05371-6) 16.5 11.7 -14.4 [facility] CenterAutomated blood platelet count (count/volume)2019-11-26 05:10:00* Test Item Value Reference Range Interpretation Comments Platelet Count (test code = 777-3) 244 140-360 [facility] neutrophil count as percentage of total qpkvfvhpmu7813-70-59 05:10:00* Test Item Value Reference Range Interpretation Comments Neutrophils (%) (Auto) (test code = 27498-1) 56.8 38.7-80.0 [facility] CenterAutomated blood lymphocyte count as percentage ot total btunlfgflk1193-89-75 05:10:00* Test Item Value Reference Range Interpretation Comments Lymphocytes (%) (Auto) (test code = 736-9) 24.4 18.0-39.1 [facility] CenterAutomated blood monocyte count as percentage of total krbidrlpvk9626-87-40 05:10:00* Test Item Value Reference Range Interpretation Comments Monocytes (%) (Auto) (test code = 5905-5) 8.3 4.4-11.3 [facility] CenterAutfirsthealth [facility]ed blood eosinophil count as percentage of total vebmlgkbej2327-30-62 05:10:00* Test Item Value Reference Range Interpretation Comments Eosinophils (%) (Auto) (test code = 713-8) 7.9 0.0-6.0 [facility] CenterAutomated blood basophil count as percentage of total isjudefkru4851-52-43 05:10:00* Test Item Value Reference Range Interpretation Comments Basophils (%) (Auto) (test code = 706-2) 1.1 0.0-1.0 [facility] CenterFluoroscopic procedure less than one hour thtpsnhq2931-68-04 05:10:00* Test Item Value Reference Range Interpretation Comments IM GRANULOCYTES % (test code = IM GRANULOCYTES %) 1.5 0.0- 1.0 [facility] CenterAutomated blood neutrophil count 2019-11-26 05:10:00* Test Item Value Reference Range Interpretation Comments Neutrophils # (Auto) (test code = 751-8) 3.0 2.1-6.9 [facility] CenterBlood lymphocytes count (number/volume) 2019-11-26 05:10:00* Test Item Value Reference Range Interpretation Comments Lymphocytes # (Auto) (test code = 11256-8) 1.3 1.0-3.2 [facility] CenterB[facility]au[facility] monocytes automated count (number/volume)2019-11-26 05:10:00* Test Item Value Reference Range Interpretation Comments Monocytes # (Auto) (test code = 742-7) 0.4 0.2-0.8 [facility] CenterAutomated blood eosinophil count 2019-11-26 05:10:00* Test Item Value Reference Range Interpretation Comments Eosinophils # (Auto) (test code = 711-2) 0.4 0.0-0.4 [facility] CenterAutfirsthealth [facility]ed blood basophil count (count/volume)2019-11-26 05:10:00* Test Item Value Reference Range Interpretation Comments Basophils # (Auto) (test code = 704-7) 0.1 0.0-0.1 [facility] CenterFluoroscopic procedure less than one hour xgihrmpg1906-64-48 05:10:00* Test Item Value Reference Range Interpretation Comments Absolute Immature Granulocyte (auto (gomez t code = Absolute Immature Granulocyte (auto) 0.08 0-0.1 [facility] CenterFluoroscopic procedure less than one hour rbpdbvxj5010-66-98 05:10:00* Test Item Value Reference Range Interpretation Comments Differential Total Cells Counted (test code = Differcalli tial Total Cells Counted) 100 [facility] blood neutrophils/100 leukocytes 2019-11-26 05:10:00* Test Item Value Reference Range Interpretation Comments Neutrophils % (Manual) (test code = 90030-4) 72 40-74 [facility] blood lymphocytes/100 leukocytes 2019-11-26 05:10:00* Test Item Value Reference Range Interpretation Comments Lymphocytes % (Manual) (test code = 737-7) 19 19-48 [facility] blood monocytes/100 leukocytes 2019-11-26 05:10:00* Test Item Value Reference Range Interpretation Comments Monocytes % (Manual) (test code = 744-3) 4 3.4-9.0 [facility] blood eosinophil count as percentage of total zgvoyyxlut1112-09-43 05:10:00* Test Item Value Reference Range Interpretation Comments Eosinophils % (Manual) (test code = 714-6) 5 0-7 [facility] CenterBlood platelets count by estimate (number/volume)2019-11-26 05:10:00* Test Item Value Reference Range Interpretation Comments Platelet Estimate (test code = 44594-1) ADEQUATE [facility] CenterPlatelet lpwtcubhxv5410-08-79 05:10:00* Test Item Value Reference Range Interpretation Comments Platelet Morphology Comment (test code = 52156-2) RARE EDTA CLUMPIN G [facility] CenterRBC xibpodevqg9590-58-61 05:10:00* Test Item Value Reference Range Interpretation Comments Red Cell Morphology Comment (test code = 6742-1) NORMAL [facility] Centererum or plasma sodium measurement (moles/volume)2019-11-26 05:10:00* Test Item Value Reference Range Interpretation Comments Sodium Level (test code = 2951-2) 139 136-145 [facility] Centererum or plasma potassium measurement (moles/volume)2019-11-26 05:10:00* Test Item Value Reference Range Interpretation Comments Potassium Level (test code = 2823-3) 3.1 3.5-5.1 [facility] Centererum or plasma chloride measurement (moles/volume)2019-11-26 05:10:00* Test Item Value Reference Range Interpretation Comments Chloride Level (test code = 2075-0) 105 98-107 [facility] Centererum or plasma carbon dioxide, total measurement (moles/volume)2019-11-26 05:10:00* Test Item Value Reference Range Interpretation Comments Carbon Dioxide Level (test code = 2028-9) 27 22-29 [facility] Centererum or plasma anion mzy4448-82-36 05:10:00* Test Item Value Reference Range Interpretation Comments Anion Gap (test code = 94443-7) 10.1 8-16 [facility] Centererum or plasma urea nitrogen measurement (mass/volume)2019-11-26 05:10:00* Test Item Value Reference Range Interpretation Comments Blood Urea Nitrogen (test code = 3094-0) 9 7-26 [facility] Centererum or plasma creatinine measurement (mass/volume)2019-11-26 05:10:00* Test Item Value Reference Range Interpretation Comments Creatinine (test code = 2160-0) 2.19 0.72-1.25 [facility] Centererum or plasma urea nitrogen/creatinine mass gjyjc8230-46-33 05:10:00* Test Item Value Reference Range Interpretation Comments BUN/Creatinine Ratio (test code = 3097-3) 4 6-25 [facility] CenterEstimated glomerular filtration rate (GFR) pihlnsqlqzsvg7126-91-75 05:10:00* Test Item Value Reference Range Interpretation Comments Estimat Glomerular Filtration Rate (test code = 675920486) 30 >60 Ranges were taken from the National Kidney Disease Education Program and the [facility] literature.Reference ranges:60 or greater: Wyhgqg73-28 ( for 3 consecutive months): Chronic kidney disease 15 or less: Kidney failureBig [facility] Regional Medical CenterGlucose ngxldmkggwx2646-79-17 05:10:00* Test Item Value Reference Range Interpretation Comments Glucose Level (test code = SWP2411) 137 74-118 [facility] Centererum or plasma calcium measurement (mass/volume)2019-11-26 05:10:00* Test Item Value Reference Range Interpretation Comments Calcium Level (test code = 51585-4) 8.5 8.4-10.2 [facility] Centererum or plasma folate measurement (mass/volume)2019-11-23 05:15:00* Test Item Value Reference Range Interpretation Comments Folate (test code = 2284-8) 4.6 >3.0 A serum folate concentration of less than 3.1 ng/mL isconsidered to represent cl inical deficiency.Performed at: - Lab[address] [id number] Director: Domingo Gonsalez MD, Phone: [phone] Bend Regional Medical CenterAutomated reticulocyte count as percentage of total zahhkchvezbd3749-09-87 05:25:00* Test Item Value Reference Range Interpretation Comments Percent Reticulocyte Count (test code = 62589-9) 1.8 0.8-2 .2 [facility] Centererum or plasma iron measurement (mass/volume)2019-11-22 05:25:00* Test Item Value Reference Range Interpretation Comments Iron Level (test code = 2498-4) 18 65-175 [facility] Centererum or plasma iron binding capacity measurement (mass/volume)2019-11-22 05:25:00* Test Item Value Reference Range Interpretation Comments Total Iron Binding Capacity (test code = 2500-7) 171 261-4 78 [facility] Centererum or plasma iron saturation measurement (mass fraction)2019-11-22 05:25:00* Test Item Value Reference Range Interpretation Comments Percent Iron Saturation (test code = 2502-3) 11 15-50 [facility] Centererum or plasma transferrin measurement (mass/volume)2019-11-22 05:25:00* Test Item Value Reference Range Interpretation Comments Transferrin (test code = 3034-6) 122 174-364 [facility] Centererum or plasma ferritin measurement (mass/volume)2019-11-22 05:25:00* Test Item Value Reference Range Interpretation Comments Ferritin (test code = 2276-4) 619.67 21.81-274.66 [facility] Centererum or plasma total bilirubin measurement (mass/volume)2019-11-22 05:25:00* Test Item Value Reference Range Interpretation Comments Total Bilirubin (test code = 1975-2) 0.7 0.2-1.2 [facility] CenterFluoroscopic procedure less than one hour rdbrudjy9339-59-79 05:25:00* Test Item Value Reference Range Interpretation Comments Aspartate Amino Transf (AST/SGOT) (test code = Aspartate Amino Transf (AST/SGOT)) 25 5-34 [facility] Centererum or plasma alanine aminotransferase measurement (enzymatic activity/volume)2019-11-22 05:25:00* Test Item Value Reference Range Interpretation Comments Alanine Aminotransferase (ALT/SGPT) (test code = 1742-6) 19 0-55 [facility] Centererum or plasma protein measurement (mass/volume)2019-11-22 05:25:00* Test Item Value Reference Range Interpretation Comments Total Protein (test code = 2885-2) 6.4 6.5-8.1 [facility] Centererum or plasma albumin measurement (mass/volume)2019-11-22 05:25:00* Test Item Value Reference Range Interpretation Comments Albumin (test code = 1751-7) 3.1 3.5-5.0 [facility] CenterPlasma globulin measurement (mass/volume) 2019-11-22 05:25:00* Test Item Value Reference Range Interpretation Comments Globulin (test code = 07943-7) 3.3 2.3-3.5 [facility] Centererum or plasma albumin/globulin mass fitay9659-00-96 05:25:00* Test Item Value Reference Range Interpretation Comments Albumin/Globulin Ratio (test code = 1759-0) 0.9 0.8-2.0 [facility] Centererum or plasma alkaline phosphatase measurement (enzymatic activity/volume)2019-11-22 05:25:00* Test Item Value Reference Range Interpretation Comments Alkaline Phosphatase (test code = 6768-6) 80 40-150 [facility] CenterBlood cobalamin (vitamin B12) measurement (mass/volume)2019-11-22 05:25:00* Test Item Value Reference Range Interpretation Comments Vitamin B12 Level (test code = 59714-1) 156 213-816 [facility] Centererum or plasma creatine kinase measurement (enzymatic activity/volume)2019-11-21 20:22:00* Test Item Value Reference Range Interpretation Comments Creatine Kinase (test code = 2157-6) 380 30-200 [facility] Centererum or plasma creatine kinase MB measurement (mass/volume)2019-11-21 20:22:00* Test Item Value Reference Range Interpretation Comments Creatine Kinase MB (test code = 44813-2) 1.90 0-5.0 [facility] CenterTroponin I measurement by highly sensitive enzyme lperjqodxwd5977-97-29 20:22:00* Test Item Value Reference Range Interpretation Comments Troponin I (test code = 74894-8) 0.042 0-0.300 [facility] CenterCT CHEST HV6442-09-43 13:59:00 [place] [address] Patient Name: GRAYSON WILLIAMSON MR #: [id number] : 1950 Age/Sex: 69/M Req #: [id number] [facility] Physician: SAMUEL MEHTA MD Ordered by: SAMUEL MEHTA MD Report #: [id number] Location: MED/SURG2 Room/Bed: [facility] Procedure: [id number] CT/CT CHEST WO Exam Date: 11/21/19 Exam Time: 1305 REPORT STATUS: Signed EXAM: CT Chest WITHOUT co ntrast 11/21/2019 1:05 PM INDICATION: SOB/SMOKER/HIGH WBC [id number] COMPARISON: CT abdomen and pelvis 11/21/2019 TECHNIQUE: Chest was scanned utilizing a multidetector helical scanner from the lung apex through t he level of the adrenal glands without administration of IV contrast. Absence of intravenous contrast decreases sensitivity for detection of lymphadenopathy and vascular pathology. Coronal and sagittal reformations were obtained. Rou damian protocol was performed. IV CONTRAST: None COMPLICATIONS: None RADIATION DOSE: Total DLP: 548.9 mGy*cm Estimated effect rosanna dose: (DLP x 0.015 x size factor) mSv CTDIvol has been reviewed. It i s below the limits set by the Radiation Protocol Committee (RPC). FINDING S: LINES/ TUBES: None. LUNGS AND AIRWAYS: Mild to moderate bilateral upper lobe predominant centrilobular emphysema. Mild subpleural mild atelectas is in both posterior lobes, not seen on earlier CT abdomen and pelvis, likely due to poor inspiration. 2.1 cm x 1.8 dystrophic calcification with surroundin g soft tissue density in the anterior left upper lobe in continuation with the left anterior 4 rib fracture deformity, likely related to prior trauma. The s oft tissue component measures 6 mm in thickness. Otherwise, no consolidation, tree-in-bud pulmonary nodule, or suspicious pulmonary nodules/masses. Airways are normal. PLEURA: The pleural spaces are clear. HEART AND MEDIASTINU M: The thyroid gland is normal. Few nonspecific subcentimeter mediastinal lym ph nodes. The heart is normal in size. Trace pericardial effusion. Extensive coronary artery calcifications with extensive place. Ectasia of the aortic ro ot at the sinus of Valsalva (3.9 cm) and mid ascending thoracic aorta (3.9 cm) . Moderate calcification throughout the thoracic aorta. The thoracic aorta an d pulmonary arteries are unremarkable. UPPER ABDOMEN: Unremarkable. MAC DILMA: Multilevel degenerative changes of the thoracic spine. Mild posttraumatic deformity of the left anterior fourth rib. SOFT TISSUES: Gynecomastia. IMPRESSION: Bilateral emphysema with dependent atelectasis in the lung base s. No CT findings to suggest active infection. Left upper lobe dystrophic calcification with a surrounding soft tissue component likely related to prio r trauma. Given the 6 mm thickness of the soft tissue component, recommend CT chest without contrast in 3 months to demonstrate stability. Signed by: Geovani Blount M.D. on 11/21/2019 2:10 PM Dictated By: PARKER BLOUNT MD 09 COPY TO: SAMUEL MEHTA MD Fluoroscopic procedure less than one hour hkxwstsc8035-26-84 05:35:00* Test Item Value Reference Range Interpretation Comments Coronavirus (PCR) (test code = Coronavirus (PCR)) NOT DETECTED NOTD ETECTED SARS-COV-2 (COVID19), HIGHRISK, RT-PCRNegative results do not preclude SARS-CoV- 2 infection and should not be used as the sole basis for patient management deci sions. Negative results must be combined with clinical observations, patient his tory, and epidemiological information. Optimum specimen types and timing for pea k viral levels during infections caused by SARS-CoV-2 have not been determined. Collection of multiple specimens ot types of specimens may be necessary to detec t virus. Improper specimen collection and handling, sequence variability under p rimers/probes, or organism present below the limit of detection may lead to fals e negative results. Positive and negative predictive values of testing are highl y dependent on prevalance. False negative test results are more likely when prev alence is high.The expected result is negative (not detected).The SARS-CoV-2 gomez t is intended for the qualitative detection of nucleic acid from SARS-CoV-2 in n asopharyngeal and oropharyngeal swab samples from patients who meet COVID-19 cli nical and or epidemiological criteria. For lower respiratory tract specimens, th e assay is submitted for authoriztion by FDA under an Emergency Use Authorizatio n (EUA). Testing methodology is real time RT-PCR. If received as separate collec tion devices, nasopharygeal and oropharyngeal specimens are combined for analysi s. Additional specimens may be split to a separate accession for analysi and rep orting as this test includes a single unit of service.Test results must be corre lated with clinical presentation and evaluated in the context of other laborator y and epidemiologic data. Test performance can be affected because the epidemiol ogy and clinical spectrum of infection caused by SARS-CoV-2 is not fully known. For example, the optimum types of specimens to collect and when during the cours e of infection these specimens are most likely to contain detectable viral RNA m ay not be known.This test has not been Food and Drug Administration (FDA) cleare d or approved and has been authorized by FDA under an Emergency Use Authorizatio n (EUA). The test is only authorized for the duration of the declaration that ci rcumstances exist justifying the authorization of emergency use of in vitro diag nostic tests for detection and/or diagnosis of SARS-CoV-2 under section 564(b) o f the Act, 21 U.S.C. section 360bbb-3(b)(1), unless the authorization is termina jacques or revoked sooner. [facility] are certified under the C linical Laboratory Improvement Amendments of 1988 (CLIA), 42 U.S.C. section 263a , to perform high complexity tests.Testing performed by [facility] [address] [place], [place] [id number] Director: Gonzalez Garcia M.D.DEVI # [id number] [facility] color gclijwwtqxfeg9862-02-54 04:15:00* Test Item Value Reference Range Interpretation Comments Urine Color (test code = 5778-6) YELLOW YELLOW [facility] ResourcesUrine rbrajez4635-26-98 04:15:00* Test Item Value Reference Range Interpretation Comments Urine Clarity (test code = 31903-4) CLOUDY CLEAR [facility] Centerpecific gravity of Urine by Test strip 2019-11-21 04:15:00* Test Item Value Reference Range Interpretation Comments Urine Specific [place] (test code = 5811-5) 1.025 1.010-1.02 5 [facility] CenterUrine pH measurement by automated test cfmxo0988-00-49 04:15:00* Test Item Value Reference Range Interpretation Comments Urine pH (test code = 54156-9) 5.5 5-7 [facility] CenterUrine leukocyte esterase detection by jxvakcms3492-82-93 04:15:00* Test Item Value Reference Range Interpretation Comments Urine Leukocyte Esterase (test code = 5799-2) NEGATIVE NEGATIVE [facility] CenterUrine nitrite kywdemboa9056-40-60 04:15:00* Test Item Value Reference Range Interpretation Comments Urine Nitrite (test code = 89774-1) NEGATIVE NEGATIVE [facility] [facility] (mass/volume)2019-11-21 04:15:00* Test Item Value Reference Range Interpretation Comments Urine Protein (test code = 5804-0) 2+ NEGATIVE [facility] glucose [id number] 04:15:00* Test Item Value Reference Range Interpretation Comments Urine Glucose (UA) (test code = 2349-9) 2+ NEGATIVE [facility] ketones detection by automated test [id number] 04:15:00* Test Item Value Reference Range Interpretation Comments Urine Ketones (test code = 29626-7) NEGATIVE NEGATIVE [facility] urobilinogen measurement by test strip (mass/volume)2019-11-21 04:15:00* Test Item Value Reference Range Interpretation Comments Urine Urobilinogen (test code = 29737-5) 0.2 0.2-1 [facility] total bilirubin measurement (mass/volume)2019-11-21 04:15:00* Test Item Value Reference Range Interpretation Comments Urine Bilirubin (test code = 1978-6) NEGATIVE NEGATIVE [facility] erythrocytes [id number] 04:15:00* Test Item Value Reference Range Interpretation Comments Urine Blood (test code = 55900-6) 2+ NEGATIVE [facility] CenterAutomated urine sediment leukocyte count by microscopy (number/high power field)2019-11-21 04:15:00* Test Item Value Reference Range Interpretation Comments Urine WBC (test code = 5821-4) >50 0-5 [facility] CenterErythrocytes detection in urine sediment by light [id number] 04:15:00* Test Item Value Reference Range Interpretation Comments Urine RBC (test code = 49170-2) 21-50 0-5 [facility] CenterBacteria detection in urine sediment by light [id number] 04:15:00* Test Item Value Reference Range Interpretation Comments Urine Bacteria (test code = 25220-1) MANY NONE [facility] CenterEpithelial cells detection in urine sediment by light [id number] 04:15:00* Test Item Value Reference Range Interpretation Comments Urine Epithelial Cells (test code = 70047-4) FEW NONE [facility] CenterTransitional cells detection in urine sediment by light [id number] 04:15:00* Test Item Value Reference Range Interpretation Comments Urine Transitional Epithelial Cells (test code = 8249-5) FEW NONE [facility] CenterRenal epithelial cells detection in urine sediment by light wycpeoetcp2799-28-15 04:15:00* Test Item Value Reference Range Interpretation Comments Urine Renal Epithelial Cells (test code = 31759-6) FEW NON E [facility] CenterCoarse granular casts detection in urine sediment by light [id number] 04:15:00* Test Item Value Reference Range Interpretation Comments Urine Coarse Granular Casts (test code = 52383-7) 1-5 >0 [facility] CenterWBC casts detection in urine sediment by light [id number] 04:15:00* Test Item Value Reference Range Interpretation Comments Urine White Blood Cell Casts (test code = 86666-3) 1-5 >0 [facility] CenterFluoroscopic procedure less than one hour [id number] 04:15:00* Test Item Value Reference Range Interpretation Comments Lactic Acid Level (test code = Lactic Acid Level) 1.1 0.5- 2.0 [facility] CenterBlood [id number] 04:15:00* Test Item Value Reference Range Interpretation Comments Blood Culture (test code = 23714118) NO GROWTH AFTER 5 DAYS, FINAL REPORT [facility] CenterBacterial urine [id number] 04:15:00* Test Item Value Reference Range Interpretation Comments Urine Culture (test code = 630-4) PSEUDOMONAS AERUGINOSA [facility] CenterCT [facility]/PELVIS [id number] 01:54:00 [facility] [address] [address] Patient Name: GRAYSON WILLIAMSON MR #: [id number] : 1950 Age/Sex: 69/M Req #: [id number] Adm Physician: Ordered by: ALEK MEHTA eport #: [id number] Location: ER Room /Bed: Procedure: [id number] CT/CT ABDOME N/PELVIS WO Exam Date: 11/21/19 Exam Time: 129 REPORT STATUS: Signed EXAM: CT Abdom en and Pelvis WITHOUT contrast INDICATION: abd pain [id number] COMPARISON: None. TECHNIQUE: Abdomen and pelvis were scanned utilizing a multidetector helical scanner from the lung base to the pubic symphysis wit hout administration of IV contrast. Absence of intravenous contrast decreases sensitivity for detection of focal lesions and vascular pathology. Coronal and sagittal reformations were obtained. Routine protocol was performed. IV CONTRAST: None ORAL CONTRAST: None COMPLICATIONS: Non e RADIATION DOSE: Total DLP: 642 mGy*cm Estimated effective d ose: (DLP x 0.015 x size factor) mSv CTDIvol has been reviewed. It is bel ow the limits set by the Radiation Protocol Committee (RPC). Dose modul ation, iterative reconstruction, and/or weight based adjustment of the mA/kV w as utilized to reduce the radiation dose to as low as reasonably achievable. FINDINGS: LINES and TUBES: None. LOWER THORAX: Unremarkable HEPATOBILIARY: No focal hepatic lesions. No biliary ductal dilation. GALLBLADDER: No radio-opaque stones or sludge. No wall thickening. SPLEEN : No splenomegaly. PANCREAS: No focal masses or ductal dilatation. ADRENALS: No adrenal nodules. KIDNEYS/URETERS: No hydronephrosis. No c ystic or solid mass lesions. Multiple renal calcifications likely represent v ascular calcifications as opposed to renal calculi. GI TRACT: The colon i s distended with gas and stool. Large volume of formed stool throughout the co crystal, notably in the rectum. Mild wall thickening of rectum and distal sigmoid colon with mild surrounding mesenteric inflammatory change. No bowel obstructi on. No significant colonic diverticuli. PELVIC ORGANS/BLADDER: Mild nonspec ific bladder wall thickening. Mild prostatomegaly. LYMPH NODES: No lympha denopathy. VESSELS: Advanced arterial atherosclerotic disease. Ectatic abdo del aorta. PERITONEUM / RETROPERITONEUM: Pelvic mesenteric inflammation. No free air or fluid. BONES: No acute osseous abnormality. SOFT TISS UES: Unremarkable. IMPRESSION: Large volume of formed sto ol throughout the colon consistent with constipation. Mild wall thickening of the rectum and distal sigmoid colon with surrounding mesenteric inflammation i s suggestive of stercoral proctitis/colitis. No bowel obstruction. Signed by: Alberto Maddox MD on 11/21/2019 1:59 AM Dictated By: ALBERTO Olivo 8 Transcribed By: KIRSTEN on 11/21/19158 COPY TO: ALEK MEHTA DO Serum or plasma lipase measurement (enzymatic activity/volume)2019-11-21 00:11:00* Test Item Value Reference Range Interpretation Comments Lipase (test code = 3040-3) 14 8- [facility]
== END 2019-11-26 13:20 | disposition home or self-care (01) | DRG 871 ==
LOC: ER 19:50 → ERHOLD 11-21 03:15 → MED/SURG2 11-21 03:52 → OBSVTOIN 11-21 11:10
PROVIDERS: ADMIT Internal Medicine; ATTEND Internal Medicine
DX: A41.9 Sepsis, unspecified organism (principal); J18.9 Pneumonia, unspecified organism; N41.0 Acute prostatitis; J44.1 Chronic obstructive pulmonary disease with (acute) exacerbation; N17.9 Acute kidney failure, unspecified; K59.00 Constipation, unspecified; K63.89 Other specified diseases of intestine; R53.1 Weakness; M16.0 Bilateral primary osteoarthritis of hip; Z99.3 Dependence on wheelchair; Z74.01 Bed confinement status; E78.5 Hyperlipidemia, unspecified; I25.10 Atherosclerotic heart disease of native coronary artery without angina pectoris; I73.9 Peripheral vascular disease, unspecified; F17.210 Nicotine dependence, cigarettes, uncomplicated; J44.9 Chronic obstructive pulmonary disease, unspecified; R26.81 Unsteadiness on feet; E86.0 Dehydration; D50.9 Iron deficiency anemia, unspecified; Z11.59 Encounter for screening for other viral diseases; R65.20 Severe sepsis without septic shock; N18.9 Chronic kidney disease, unspecified; I12.9 Hypertensive chronic kidney disease with stage 1 through stage 4 chronic kidney disease, or unspecified chronic kidney disease
CPT/HCPCS: 36415; 71250; 74176; 80048; 80053; 81001; 82550; 82553; 82607; 82728; 82746; 82784; 83516; 83540; 83605; 83690; 84466; 84484; 85025; 85045; 86256; 87040; 87086; 87186; 87205; 93005; 94640; 97139; 99284; J0696; J1650; J1756; J2270; J2543; J3420; J7030; U0002

== ENCOUNTER → 2019-12-16 | Day surgery (SDC) | payer MEDICARE ==
[~2019-12-16] MED LIST: AMLODIPINE BESYL5 MG PO; ASPIRIN CHEW81 MG PO; ATORVASTATIN CA80 MG PO; CIPRO500 MG PO; CLOPIDOGREL75 MG PO; ETOMIDATE 2 MG/ML 10 ML INJ IV ONE; FLAGYL250 MG PO; HYOSCYAMINE 0.125 MG TAB ONE; LIDOCAINE HCL 2% LOCAL INJ 5 ML SDV VIAL INJ ONE; LISINOPRIL40 MG PO; METOCLOPRAMIDE HCL 10 MG/2ML VIAL ONE; MIRALAX17 GM PO; NORVASC5 MG PO; PROPOFOL IV EMULSION 10 MG/ML 20 ML VIAL ONE; SENOKOT-S TABL1 EACH PO; VITAMIN B-121000 MCG PO
[2019-12-16 11:10] VITALS: BP 107/69
--- NOTE | 2019-12-16 12:34 | Operative Report ---
DATE OF PROCEDURE: 12/16/2019 SURGEON: Francois Andino MD PROCEDURE: An EGD with polypectomy, biopsies and esophageal dilatation and a flexible sigmoidoscopy. INDICATION FOR EGD: Dysphagia. 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 MEDICATIONS: The patient was done under MAC. Please see anesthesiologist's note. PROCEDURE IN DETAIL: With the patient in left lateral decubitus position, a flexible fiberoptic Olympus gastroscope was introduced into the esophagus under direct visualization without any difficulty. There was some patchy erythema noted in distal esophagus. The esophagus was then dilated to size 52-[place] Piment[place]. The scope was then advanced with ease into the stomach. Mucosa overlying the antrum revealed some patchy erythema and [id number] edema, and biopsies were obtained and sent to stain for H pylori. Mucosa overlying the body revealed some ? patchy atrophic changes with patchy nodularity and multiple biopsies were obtained. The pylorus was of normal contour and shape, was intubated with ease and the scope was advanced all the way to the second portion of the duodenum. The scope was then withdrawn slowly. Mucosa overlying the proximal second portion and the duodenal bulb grossly appeared to be within normal limits. The scope was then withdrawn back into the stomach and retroflexed and a minute polyp was noted in the fundus that was removed per the cold biopsy forceps. The cardia was nodular and that was also biopsied. The scope was then straightened out, it was subsequently withdrawn. The patient tolerated the procedure well. IMPRESSION: 1. Distal esophagitis, mild. 2. Esophagus dilated to size 52-[place] Pimentel. 3. Cardia, nodular, biopsied. 4. Gastritis, biopsied, biopsies sent to stain for Helicobacter pylori. 5. Fundic polyp removed per cold biopsy forceps. PLAN: Follow up histology. Initiate Protonix 40 mg one p.o. q.a.m. a.c. The patient was then turned around after adequate lubrication of the anal canal. The flexible fiberoptic Olympus colonoscope was inserted into the rectum with ease and advanced to approximately 40 cm from the anal verge. A large amount of retained fecal material was noted in the colon. The scope was then withdrawn. Whatever was visualized, the mucosa overlying the sigmoid and the rectum grossly appeared to be within normal limits. The scope was then retroflexed into the distal rectum. Small internal hemorrhoids were noted, none of which was actively bleeding. The scope was then straightened out. It was subsequently withdrawn. The patient tolerated procedure well. IMPRESSION: 1. Flexible sigmoidoscopy to approximately 40 cm from anal verge. 2. Poor prep. 3. Internal hemorrhoids, none actively bleeding. The patient will need a repeat colonoscopy after a better prep. Francois Andino MD [facility] – [place] /[id number] cc: Rory Reno MD
== END | disposition home or self-care (01) ==
LOC: OR 08:32
PROVIDERS: ATTEND Internal Medicine Gastroenterology
DX: K20.9 Esophagitis, unspecified (principal); K31.7 Polyp of stomach and duodenum; K29.40 Chronic atrophic gastritis without bleeding; K31.89 Other diseases of stomach and duodenum; K52.9 Noninfective gastroenteritis and colitis, unspecified; K62.89 Other specified diseases of anus and rectum; K64.8 Other hemorrhoids; K59.09 Other constipation; D64.89 Other specified anemias; M19.90 Unspecified osteoarthritis, unspecified site; J44.9 Chronic obstructive pulmonary disease, unspecified; H91.90 Unspecified hearing loss, unspecified ear; I25.10 Atherosclerotic heart disease of native coronary artery without angina pectoris; E78.5 Hyperlipidemia, unspecified; E11.22 Type 2 diabetes mellitus with diabetic chronic kidney disease; I12.9 Hypertensive chronic kidney disease with stage 1 through stage 4 chronic kidney disease, or unspecified chronic kidney disease; N18.9 Chronic kidney disease, unspecified; F17.210 Nicotine dependence, cigarettes, uncomplicated; Z01.812 Encounter for preprocedural laboratory examination; Z11.59 Encounter for screening for other viral diseases; Z79.02 Long term (current) use of antithrombotics/antiplatelets; Z79.82 Long term (current) use of aspirin; Z85.51 Personal history of malignant neoplasm of bladder; Z86.73 Personal history of transient ischemic attack (TIA), and cerebral infarction without residual deficits; Z95.5 Presence of coronary angioplasty implant and graft
CPT/HCPCS: 36415; 43239; 43450; 45330; 82948; 88305; 88312; J2001; J2704; J2765; U0002